=== PATIENT | male | born 2000 | race Caucasian/White ===

== ENCOUNTER 2025-02-18 09:22 | Emergency (ER) | payer OTHER, SELFPAY ==
--- NOTE | 2025-02-18 09:25 | ED.GENADULT ---
HPI - General Adult General Chief complaint: Nausea/Vomiting/Diarrhea Stated complaint: fever Time Seen by Provider: 02/18/25 09:25 Source: patient Mode of arrival: ambulatory Limitations: no limitations History of Present Illness HPI narrative: Pt is a 24 y/o male presenting with c/o fever. Reports Tmax 101.6 yesterday. Additional sx reported include Diarrhea, onset Sunday. Denies presence of mucus or blood in stool. Denies recent dietary changes. Denies known exposure to foods. Denies recent travel, abx use. Denies known personal or family hx of IBD. No similar sx among household members. 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 Reports (3) episodes of diarrhea today. No additional complaints. Related Data Home Medications ?Medication ?Instructions ?Recorded ?Confirmed ?Last Taken ?Type No Home Medications 02/18/25 02/18/25 Unknown History Allergies Allergy/AdvReac Type Severity Reaction Status Date / Time No Known Allergies Allergy Verified 02/18/25 09:30 Review of Systems Review of Systems: CONSTITUTIONAL: Reports fever, denies body aches, chills, or sweats. EYES: Denies visual changes, redness, or discharge. ENT: Denies rhinorrhea, congestion, sore throat, or otalgia. CARDIOVASCULAR: Denies chest pain, palpitations, or edema. RESPIRATORY: Denies cough or dyspnea. GASTROINTESTINAL: Denies abdominal pain, nausea, vomiting, or diarrhea. GENITOURINARY: Denies dysuria or hematuria. SKIN: Denies rash, itching, or wounds. MUSCULOSKELETAL: Denies back pain, joint pain, or myalgia. NEUROLOGIC: Denies headache, numbness, tingling, or weakness. PSYCH: Denies depression or anxiety. All systems reviewed & are unremarkable except as noted in HPI and below Exam Narrative: GENERAL: Well-appearing, well-nourished, and in no acute distress. HEAD: Normocephalic, atraumatic. EYES: EOMI. No redness or drainage. Conjunctivae normal. ENT: Mucous membranes pink and moist. Nares clear. No rhinorrhea. TMs normal bilaterally. Throat normal. Uvula midline. NECK: Normal AROM. Supple. No lymphadenopathy. CHEST: No respiratory distress. Clear to auscultation. HEART: Regular rate and rhythm. No murmur appreciated. Normal peripheral pulses. ABDOMEN: Soft, nontender, nondistended, normal active bowel sounds. MUSCULOSKELETAL: No bony tenderness. EXTREMITIES: Normal range of motion. No edema. SKIN: Warm, dry, no rash. Capillary refill normal. Normal skin turgor. NEURO: No focal deficits. Alert and oriented x3. Gait steady. PSYCH: Normal affect. No signs of depression or anxiety. Course Course Level of Care: Express Care Visit Vital Signs Vital signs: Vital Signs Temperature 97.4 F L 02/18/25 09:38 Pulse Rate 79 02/18/25 09:38 Respiratory Rate 18 02/18/25 09:38 Blood Pressure 133/73 02/18/25 09:38 Pulse Oximetry 98 02/18/25 09:38 Oxygen Delivery Room Air 02/18/25 09:38 Temperature 97.4 F L 02/18/25 09:38 Pulse Rate 79 02/18/25 09:38 Respiratory Rate 18 02/18/25 09:38 Blood Pressure 133/73 02/18/25 09:38 Pulse Oximetry 98 02/18/25 09:38 Oxygen Delivery Room Air 02/18/25 09:38 Medical Decision Making MDM Narrative Medical decision making narrative: No signs of dehydration on exam. Abd is soft and nontender. Afebrile. Rec'd conservative measures at this time--strict go to ER precautions discussed at length. Vital Signs Vital Signs: Vital Signs Temperature 97.4 F L 02/18/25 09:38 Pulse Rate 79 02/18/25 09:38 Respiratory Rate 18 02/18/25 09:38 Blood Pressure 133/73 02/18/25 09:38 Pulse Oximetry 98 02/18/25 09:38 Oxygen Delivery Room Air 02/18/25 09:38 Temperature 97.4 F L 02/18/25 09:38 Pulse Rate 79 02/18/25 09:38 Respiratory Rate 18 02/18/25 09:38 Blood Pressure 133/73 02/18/25 09:38 Pulse Oximetry 98 02/18/25 09:38 Oxygen Delivery Room Air 02/18/25 09:38 Lab Data Lab results reviewed: Yes I reviewed the patient's lab results. Discharge Plan Discharge Clinical Impression: Diarrhea Qualifiers: Diarrhea type: unspecified type Qualified Code(s): R19.7 - Diarrhea, unspecified Patient Disposition: Home Condition: Stable Instructions: Antibiotic Form, Acute Diarrhea (ED), Nutrition Tips for Relief of Diarrhea (ED) Additional Instructions: Go straight to ER should your symptoms become worse or should any new symptoms develop Patient Language: Romansh Prescriptions: No Action No Home Medications Follow-up/Referrals: UNKNOWN,DOCTOR [Primary Care Provider] - 02/18/25 Time of Disposition: 10:04
[2025-02-18 09:38] VITALS: BP 133/73; PULSE 79; RESP 18; TEMP 36.3; O2SAT 98
[2025-02-18 10:04] LABS: EDCOVIDSCREEN Negative (Negative); EDINFLUASCREEN Negative (Negative); EDINFLUBSCREEN Negative (Negative)
--- OUTSIDE RECORDS SUMMARY | 2025-02-18 10:29 | XMS_ITS | Continuity of Care Document ---
Author Organization [facility] Address [address] [place] [address] Phone Care Team Providers Care Product Consultant Name Role Phone Unavailable Unavailable Unavailable Unavailable Unavailable Unavailable Allergies and Adverse Reactions No Known Drug Allergies *(Al lergy) Reaction:Unknown * Medications docusate sodium 100 MG Oral Capsule [Colace];1 cap(s) orally 2 times a day, As Needed - PRN constipation Quantity:0 Refills:0 Flory Robin 1 cap(s) orally 2 times a da y, As Needed - PRN constipation acetaminophen 325 MG / HYDRO codone bitartrate 5 MG Oral Tablet [Silvis];1 tab(s) orally every 6 hours, As Needed - PRN pain Quantity:0 Refills:0 Flory Robin 1 tab(s) orally every 6 hour s, As Needed - PRN pain ondansetron 4 MG Oral Tablet ;1 tab(s) orally every 8 hours, As Needed - PRN nausea or vomiting Quantity:0 Refills:0 Flory Robin 1 tab(s) orally every 8 hour s, As Needed - PRN nausea or vomiting Multivitamin-Minerals;1 tab( s) orally once a day-pm Quantity:0 Refills:0 Flory Robin 1 tab(s) orally once a day-p m
--- OUTSIDE RECORDS SUMMARY | 2025-02-18 10:29 | XMS_ITS | Clinical Summary ---
Author Organization [facility] Address [address] [place] [address] Care Team Providers Care Antique Refinisher Name Role Phone Provider, Not In System Primary Care Provider Un available Source Comments This disclosure is being made pursuant to the [facility] program and maynot contain all information available regarding this patient.[facility] Allergies No known active allergies Medications No known medications Active Problems No known active problems Family History Medical History Relation Name Comments Heart disease Maternal Grandfather Cancer Maternal Grandmother Heart disease Paternal Grandmother Relation Name Status Comments Maternal Grandfather Maternal Grandmother Paternal Grandmother Social History Tobacco Use Types Packs/Day Years Used Date Smoking Tobacco: Never Smokeless Tobacco: Never Alcohol Use Standard Drinks/Week Comments No 0 (1 standard drink = 0.6 oz pur e alcohol) Sex and Gender Information Value Date Recorded Sex Assigned at Not on file Legal Sex Male 10:21 AM CDT Gender Identity Not on file Sexual Orientation Not on file Last Filed Vital Signs Vital Sign Reading Time Taken Comments Blood Pressure 98/70 05/02/2016 8:59 AM HEEL TRIMMER Pulse - - Temperature - - Respiratory Rate - - Oxygen Saturation - - Inhaled Oxygen Concentration - - Weight 45.4 kg (100 lb) 04/24/2017 7:56 AM HEEL TRIMMER Height 157.5 cm (5' 2) 04/24/2017 7:56 AM HEEL TRIMMER Body Mass Index 18.29 04/24/2017 7:56 AM HEEL TRIMMER Plan of Treatment Health Maintenance Due Date Last Done Comments Lab-Cholesterol Screening 2000 Lab-Hepatitis C Screening 2000 HPV Vaccine (9-26yo & Shared Decision 27-45yo) (1 - Male 3-dose series) 08/20/2015 Annual Wellness Visit 2018 Hepatitis B Vaccine (1 of 3 - 19+ 3-dose series) 08/20/2019 Tetanus/Pertussis Vaccine Teen/Adult (1 - Tdap) 08/20/2019 COVID-19 Vaccine (1 - 2023-2 5 season) 2024 Influenza Vaccine (#1) 2024 Zoster (Shingles) Vaccine 50 + (1 of 2) 2050 RSV Adult (1 - 1-dose 75+ series) 08/20/2075 HIB Vaccine Aged Out No longer eligi ble based on patient's age to complete this topic Hepatitis A Vaccine Aged Out No longe r eligible based on patient's age to complete this topic IPV Vaccine Aged Out No longer eligi ble based on patient's age to complete this topic Meningococcal Conjugate Vaccine Aged Out No longer eligible based on patient's age to complete this topic Pneumococcal Vaccines 0-49 yo Aged Out No longer eligible based on patient's age to complete this topic RSV < 20 Months Aged Out No longer el igible based on patient's age to complete this topic Insurance Care Teams Antique Refinisher Relationship Specialty Start Date End Date Provider, Not In System PCP - General 01/11/16
--- OUTSIDE RECORDS SUMMARY | 2025-02-18 10:48 | XMS_ITS | Continuity of Care Document ---
Author Organization [facility] Address [address] [place] [address] Phone Care Team Providers Care Assembler Installer General Name Role Phone Unavailable Unavailable Unavailable Unavailable [...] HYDRO codone bitartrate 5 MG Oral Tablet [Patterson];1 tab(s) orally every 6 hours, As Needed [...]
== END 2025-02-18 10:05 | disposition home or self-care (01) ==
PROVIDERS: Emergency Provider Registered Nurse
DX: R19.7 Diarrhea, unspecified (principal); Z20.822 Contact with and (suspected) exposure to COVID-19
CPT/HCPCS: 87426; 87804; 99202; G0463